=== PATIENT | male | born 1985 | race Caucasian/White ===

== ENCOUNTER 2024-12-16 20:32 | Inpatient (IN) | payer OTHER ==
[~2024-12-16] VITALS: Ht 167.6 cm; Wt 59.0 kg
[2024-12-16] MEDS ORDERED: ONDANSETRON 4 MG/2 ML VIAL ONE (21:14)
[2024-12-16] MEDS: ONDANSETRON 4 MG/2 ML VIAL IV ONE (21:16)
[2024-12-16] MEDS: IV NORMAL SALINE 1000 ML BAG IV ONE (21:18)
[2024-12-16 21:21] LABS: RED BLOOD CELL COUNT(AUTO) 4.74 MIL/uL (4.06-5.63); RED CELL DISTRIBUTION WIDTH 14.8 % (12.1-16.2); WHITE BLOOD COUNT (AUTO) 19.2 K/uL (3.6-10.2)
[2024-12-16 21:21] LABS: *BILIRUBIN,URIN NEGATIVE (NEGATIVE); *BLOOD, URINE 3+ (NEGATIVE); *CLARITY,URINE CLOUDY (CLEAR); *COLOR,URINE YELLOW (YELLOW); *KETONES,URINE NEGATIVE (NEGATIVE); *PROTEIN,URINE 3+ (NEGATIVE); *UROBILINOGEN,URINE 0.2 E.U./dl (NORMAL); LEUKOCYTE ESTERASE ,URINE 1+ (NEGATIVE); NITRITE, URINE NEGATIVE (NEGATIVE); UGLUCOSE TRACE (NEGATIVE)
[2024-12-16 21:27] LABS: PLATELET COUNT (AUTO) 1195 K/uL (152-348)
[2024-12-16 21:28] LABS: CREATININE 2.7 mg/dL (0.6-1.3); UREA NITROGEN, BLOOD 42 mg/dL (7-18)
[2024-12-16 21:32] LABS: SODIUM SERUM 108 mmol/L (136-145)
[2024-12-16 21:37] LABS: ETHANOL < 3 MG/DL (0-10)
[2024-12-16 21:42] LABS: ASPARTATE AMINOTRANSFERASE 74 U/L (15-37); TOTAL PROTEIN, SERUM 9.7 g/dL (6.4-8.2)
[2024-12-16] MEDS ORDERED: IV SODIUM CHLORIDE 3% 500 ML IV ONE (21:45)
[2024-12-16] MEDS ORDERED: SODIUM BICARBONATE 4.2 % (NEUT) 5 ML VIAL IJ ONE (21:45)
[2024-12-16] MEDS ORDERED: MORPHINE SULFATE 2 MG/1 ML DISP.SYRIN ONE (21:48)
[2024-12-16] MEDS ORDERED: diphenhydrAMINE 50 MG/1 ML VIAL ONE (21:48)
[2024-12-16] MEDS ORDERED: MORPHINE SULFATE 4 MG/1 ML DISP.SYRIN ONE (21:48)
[2024-12-16] MEDS: diphenhydrAMINE 50 MG/1 ML VIAL IV ONE (21:53)
[2024-12-16] MEDS: MORPHINE SULFATE 4 MG/1 ML DISP.SYRIN IV ONE (21:55)
[2024-12-16 21:56] LABS: SQUAMOUS EPITHELIAL CELL,UR FEW /HPF (NONE SEEN)
[2024-12-16 22:01] LABS: *AMPHETAMINE, URINE POSITIVE (NEGATIVE); *BARBITURATE, URINE NEGATIVE (NEGATIVE); *BENZODIAZEPINE, URINE POSITIVE (NEGATIVE); *CANNABINOID, URINE NEGATIVE (NEGATIVE); *COCCAINE, URINE NEGATIVE (NEGATIVE); *OPIATE, URINE NEGATIVE (NEGATIVE); *PHENCYCLIDINE SCREEN,URINE NEGATIVE (NEGATIVE); FENTANYL, URINE NEGATIVE (NEGATIVE)
[2024-12-16] MEDS ORDERED: DEXTROSE 50% 50 ML DISP.SYRIN ONE (22:05)
[2024-12-16] MEDS ORDERED: INSULIN NPH 1,000 UNITS/10 ML VIAL SQ ONE (22:05)
[2024-12-16] MEDS ORDERED: INSULIN REGULAR, HUMAN 1000 UNIT/10 ML VIAL ONE (22:06)
[2024-12-16] MEDS: INSULIN REGULAR, HUMAN 1000 UNIT/10 ML VIAL IV ONE (22:12)
[2024-12-16] MEDS: SODIUM POLYSTYRENE SULFONATE 15 G/60 ML LIQUID UDC PO ONE (22:14)
[2024-12-16] MEDS: DEXTROSE 50% 50 ML DISP.SYRIN IV ONE (22:14)
[2024-12-16] MEDS ORDERED: SODIUM BICARBONATE 8.4% 50 MEQ/50 ML DISP.SYRIN IV ONE (22:25)
[2024-12-16 22:28] LABS: LYMPHOCYTES % (MANUAL) 6 % (20-40); MONOCYTES % (MANUAL) 8 % (2-10); NEUTROPHILS % (MANUAL) 85 % (42-75); PLATELET ESTIMATE MARKED INCREASED
[2024-12-16] MEDS ORDERED: CALCIUM GLUCONATE 1 GM/10 ML VIAL IV ONE (22:29)
[2024-12-16] MEDS ORDERED: SODIUM ZIRCONIUM CYCLOSILICATE 10 GM POWD.PACK ONE (22:29)
[2024-12-16 22:43] LABS: ABG BASE EXCESS 4.2 mmol/L (-2.0-3.0); ABG HCO3 25.9 mmol/L (21.0-28.0); ABG PCO2 29.6 mmHg (35.0-48.0); ABG PH 7.560 (7.350-7.450); ABG PO2 110.2 mmHg (83.0-108.0); ABG SITE RIGHT RADIAL; ABG TOTAL HEMOGLOBIN 12.1 G/dL (13.5-17.5); AaDO2 98.6 mmHg; FIO2 21.0 %
[2024-12-16] MEDS: CALCIUM GLUCONATE IV 1 GM in IV DEXTROSE 5% 50 ML IV ONE (22:49)
[2024-12-16] MEDS: SODIUM BICARBONATE 8.4% 50 MEQ/50 ML DISP.SYRIN IV ONE (22:49)
[2024-12-16] MEDS: SODIUM ZIRCONIUM CYCLOSILICATE 10 GM POWD.PACK PO STA (22:49)
[2024-12-16] MEDS ORDERED: CEFTRIAXONE /D5W 50ML IVPB **ER PYXIS IV ONE (23:19)
[2024-12-16] MEDS ORDERED: LORAZEPAM 2 MG/1 ML VIAL IV PRN (23:30)
[2024-12-16 23:44] LABS: CREATININE 2.0 mg/dL (0.6-1.3); UREA NITROGEN, BLOOD 36.0 mg/dL (7-18)
[2024-12-16 23:46] LABS: SODIUM SERUM 112.0 mmol/L (136-145)
[2024-12-16] MEDS: SODIUM CITRATE/CITRIC ACID (500/334MG/5ML) UDC 30 ML SOLUTION PO SCH (23:55)
[2024-12-16] MEDS: IV SODIUM CHLORIDE 3% 500 ML IV ONE (23:55)
[2024-12-17] MEDS ORDERED: NICOTINE 21 MG/24HR PATCH TD ONE (01:14)
[2024-12-17] MEDS ORDERED: LAMOTRIGINE 200 MG TABLET ONE (01:14)
[2024-12-17] MEDS ORDERED: MISCELLANEOUS MED XX PRN (01:15)
[2024-12-17] MEDS ORDERED: MISCELLANEOUS MED XX ONE ×2 (01:15→01:30)
[2024-12-17] MEDS ORDERED: VANCOMYCIN IV 200 ML ONE (02:15)
[2024-12-17] MEDS ORDERED: PIPERACILLIN/TAZOBACTAM/D5W 50 ML ONE (02:15)
[2024-12-17] MEDS: PIPERACILLIN/TAZO 2.25 G in IV DEXTROSE 5% 50 ML IV ONE (02:16)
[2024-12-17] MEDS: VANCOMYCIN IV 1,000 MG in IV DEXTROSE 5% 250 ML IV ONE (02:24)
[2024-12-17 03:22] LABS: *BILIRUBIN,URIN NEGATIVE (NEGATIVE); *CLARITY,URINE CLEAR (CLEAR); *COLOR,URINE LIGHT YELLOW (YELLOW); *KETONES,URINE NEGATIVE (NEGATIVE); *PROTEIN,URINE NEGATIVE (NEGATIVE); *UROBILINOGEN,URINE 0.2 E.U./dl (NORMAL); LEUKOCYTE ESTERASE ,URINE 1+ (NEGATIVE); NITRITE, URINE NEGATIVE (NEGATIVE); UGLUCOSE NEGATIVE (NEGATIVE)
[2024-12-17 03:23] LABS: *BLOOD, URINE TRACE (NEGATIVE)
[2024-12-17 03:31] LABS: *CREATININE,URINE 15.1 mg/dL (30-125); *SODIUM RNDM,URINE 27.0 mmol/L (40-220); *URINE TOTAL PROTEIN RANDOM 6.1 mg/dL (<150/24HR)
[2024-12-17 05:32] LABS: PLATELET COUNT (AUTO) 975 K/uL (152-348); RED BLOOD CELL COUNT(AUTO) 4.10 MIL/uL (4.06-5.63); RED CELL DISTRIBUTION WIDTH 14.8 % (12.1-16.2); WHITE BLOOD COUNT (AUTO) 10.8 K/uL (3.6-10.2)
[2024-12-17 05:47] LABS: CREATINE KINASE, TOTAL 313.0 U/L (39-308)
[2024-12-17 05:56] LABS: ASPARTATE AMINOTRANSFERASE 60.0 U/L (15-37); CREATININE 1.4 mg/dL (0.6-1.3); TOTAL PROTEIN, SERUM 7.8 g/dL (6.4-8.2); UREA NITROGEN, BLOOD 28.0 mg/dL (7-18)
[2024-12-17 06:00] LABS: SODIUM SERUM 117.0 mmol/L (136-145)
[2024-12-17 06:02] LABS: IRON, SERUM 21.0 ug/dL (50-175)
[2024-12-17 06:34] LABS: LYMPHOCYTES % (MANUAL) 18 % (20-40); MONOCYTES % (MANUAL) 5 % (2-10); NEUTROPHILS % (MANUAL) 77 % (42-75); PLATELET ESTIMATE MARKED INCREASED
[2024-12-17] MEDS ORDERED: ONDANSETRON 4 MG/2 ML VIAL ONE (07:13)
[2024-12-17] MEDS ORDERED: MORPHINE SULFATE 2 MG/1 ML DISP.SYRIN ONE ×2 (07:13→12:30)
[2024-12-17] MEDS: MORPHINE SULFATE 2 MG/1 ML DISP.SYRIN IV PRN (07:18)
[2024-12-17] MEDS: ONDANSETRON 4 MG/2 ML VIAL IV PRN (07:20)
[2024-12-17] MEDS ORDERED: IV D5W 1000ML 1,000 ML IV PRN (07:30)
[2024-12-17 07:38] LABS: CREATININE 1.3 mg/dL (0.6-1.3); UREA NITROGEN, BLOOD 29.0 mg/dL (7-18)
[2024-12-17 07:49] LABS: SODIUM SERUM 115.0 mmol/L (136-145)
[2024-12-17] MEDS: PIPERACILLIN SODIUM/TAZOBACTAM 3.375 G in IV DEXTROSE 5% 50 ML IV ONE (08:21)
[2024-12-17] MEDS ORDERED: PANTOPRAZOLE SODIUM 40 MG VIAL ONE (09:32)
[2024-12-17] MEDS: PANTOPRAZOLE SODIUM 40 MG VIAL IV SCH (09:35)
[2024-12-17 09:58] VITALS: BP 123/82
[2024-12-17 11:44] LABS: CREATININE 1.4 mg/dL (0.6-1.3); UREA NITROGEN, BLOOD 27.0 mg/dL (7-18)
[2024-12-17 11:49] LABS: SODIUM SERUM 120.0 mmol/L (136-145)
[2024-12-17 13:50] VITALS: BP 123/82; O2SAT 100
[2024-12-17] MEDS ORDERED: PIPERACILLIN SODIUM/TAZOBACTAM 3.375 G in IV DEXTROSE 5% 50 ML IV SCH (14:00)
[2024-12-17] MEDS ORDERED: PIPERACILLIN/TAZO 2.25 G in IV DEXTROSE 5% 50 ML IV SCH (14:00)
[2024-12-17] MEDS ORDERED: VANCOMYCIN IV 1,000 MG in IV DEXTROSE 5% 250 ML IV SCH (14:00)
[2024-12-17] MEDS ORDERED: OMEP20CA15 PO (14:47)
[2024-12-17] MEDS ORDERED: QUET100T PO (14:47)
[2024-12-17] MEDS ORDERED: LAMO200T2 PO (14:47)
[2024-12-17] MEDS ORDERED: ALPR0.5T8 PO (14:47)
[2024-12-17] MEDS ORDERED: PHEN30CA2 PO (14:47)
[2024-12-18 06:07] LABS: PTH, INTACT 33 pg/mL (15-65)
== END 2024-12-17 13:28 | disposition left against medical advice (07) | DRG 720 ==
LOC: ER 21:14 → ICU IN 23:00
PROVIDERS: ADMIT Internal Medicine; ATTEND Internal Medicine
DX: A41.9 Sepsis, unspecified organism (principal); N17.0 Acute kidney failure with tubular necrosis; M62.82 Rhabdomyolysis; G93.40 Encephalopathy, unspecified; R65.20 Severe sepsis without septic shock; N13.6 Pyonephrosis; B96.89 Other specified bacterial agents as the cause of diseases classified elsewhere; F31.9 Bipolar disorder, unspecified; F19.10 Other psychoactive substance abuse, uncomplicated; E87.1 Hypo-osmolality and hyponatremia; E87.3 Alkalosis; E87.5 Hyperkalemia; F17.290 Nicotine dependence, other tobacco product, uncomplicated; D75.839 Thrombocytosis, unspecified; K82.8 Other specified diseases of gallbladder; R94.31 Abnormal electrocardiogram [ECG] [EKG]; F41.9 Anxiety disorder, unspecified; N30.10 Interstitial cystitis (chronic) without hematuria; F90.9 Attention-deficit hyperactivity disorder, unspecified type; Z79.899 Other long term (current) drug therapy; Z53.29 Procedure and treatment not carried out because of patient's decision for other reasons
CPT/HCPCS: 36415; 36600; 70030-TC; 71045; 76700; 82803; 83550; 83605; 83735; 83970; 84100; 84155; 84165; 84300; 84443; 84484; 86803; 87040; 87086; A4606; A4663; G0378; G0480; J0612; J0696; J1200; J1815; J2270; J2405; J2470; J2543; J3373; J3490; J7040; J7050